=== PATIENT | male | born 1960 | race Caucasian/White ===

== ENCOUNTER 2021-07-20 23:40 | Emergency (ER) | payer OTHER ==
[2021-07-20] MEDS ORDERED: Aspirin 81 MG Tab.Chew PO ONE (23:52)
[2021-07-21 00:34] LABS: ANION GAP 11.2 mEq/L (7-13); CHLORIDE,CL 105 mmol/L (98-107); SODIUM,NA 140 mmol/L (136-145)
[2021-07-21 00:50] LABS: CORONAVIRUS COVID-19 NAA NEGATIVE (NEGATIVE)
== END 2021-07-21 02:59 | disposition home or self-care (01) ==
LOC: DL.ED 23:40
DX: K52.9 Noninfective gastroenteritis and colitis, unspecified (principal); Z20.822 Contact with and (suspected) exposure to COVID-19
CPT/HCPCS: 0240U; 36415; 71045; 80053; 82150; 83605; 83690; 84484; 85025; 87045; 87046; 87177; 87206; 87207; 87899; 93005; 99285; A9270; 93010; 99283